=== PATIENT | female | born 1940 | race Two or more races ===

== ENCOUNTER 2017-01-13 08:17 | Day surgery (SDC) | payer OTHER ==
[~2017-01-13] VITALS: Ht 137.2 cm; Wt 70.9 kg
[~2017-01-13 08:17] MED LIST: ASPI81 PO; ATOR10TA84 PO; DICLOFENAC SODIUM 0.1% 2.5 ML OPHTHALMIC SOLUTION OD ONE; METF500T4 PO; MOXIFLOXACIN HCL 0.5% 3 ML OPHTHALMIC SOLUTION OD ONE; RINGERS SOLUTION,LACTATED 500 ML IV ONE; TELM1TAB26 PO
[2017-01-13] MEDS ORDERED: MOXIFLOXACIN HCL 0.5% 3 ML OPHTHALMIC SOLUTION ONE (08:45)
[2017-01-13] MEDS ORDERED: TROPICAMIDE 1% 2 ML OPHTHALMIC SOLUTION ONE (08:45)
[2017-01-13] MEDS ORDERED: DICLOFENAC SODIUM 0.1% 2.5 ML OPHTHALMIC SOLUTION ONE (08:45)
[2017-01-13] MEDS ORDERED: RINGERS SOLUTION,LACTATED 500 ML IV ONE (08:46)
[2017-01-13] MEDS ORDERED: PHENYLEPHRINE HCL 2.5% 2 ML OPHTHALMIC SOLUTION ONE (08:46)
[2017-01-13] MEDS ORDERED: METO25 PO (08:59)
[2017-01-13] MEDS ORDERED: ROSU20 PO (08:59)
[2017-01-13] MEDS ORDERED: METF850T2 PO (08:59)
[2017-01-13] MEDS ORDERED: FOLI1 PO (08:59)
[2017-01-13] MEDS ORDERED: LOSA50TA37 PO (08:59)
[2017-01-13] MEDS ORDERED: ASPI81TA42 PO (08:59)
[2017-01-13] MEDS: TROPICAMIDE 1% 2 ML OPHTHALMIC SOLUTION OD SCH ×2 (09:40→09:45)
[2017-01-13] MEDS: PHENYLEPHRINE HCL 2.5% 2 ML OPHTHALMIC SOLUTION OD SCH ×2 (09:40→09:45)
[2017-01-13 09:43] LABS: GLUCOSE,POINT OF CARE 138 MG/DL (70-110)
[2017-01-13] MEDS ORDERED: FentaNYL CITRATE-PF 100 MCG/2 ML VIAL IVP ONE (12:00)
[2017-01-13] MEDS ORDERED: MIDAZOLAM HCL 2 MG/2 ML VIAL IVP ONE (12:00)
[2017-01-13] MEDS ORDERED: VANCOMYCIN HCL 500 MG/VIAL IV ONE (17:26)
[2017-01-13] MEDS ORDERED: POVIDONE-IODINE 10% 15 ML SOLUTION UD TP ONE (17:26)
[2017-01-13] MEDS ORDERED: LIDOCAINE HCL/PF 1% 2 ML VIAL IM ONE (17:26)
[2017-01-13] MEDS ORDERED: DEXAMETHASONE SOD PHOS 4 MG/ML VIAL IVP ONE (17:26)
[2017-01-13] MEDS ORDERED: HYALURONATE SODIUM 12 MG/ML 0.8 ML SYRINGE IO ONE (17:26)
[2017-01-13] MEDS ORDERED: HYALURONATE SOD/CHONDROITIN SOD 0.5 ML VIAL IO ONE (17:26)
[2017-01-13] MEDS ORDERED: TETRACAINE HCL VISCOUS 0.5% 5 ML OPHTHALMIC SOLUTION OD ONE (17:26)
== END 2017-01-13 12:40 | disposition home or self-care (01) ==
LOC: SURGERY 08:17
PROVIDERS: ATTEND Specialist
DX: E11.36 Type 2 diabetes mellitus with diabetic cataract (principal); H25.011 Cortical age-related cataract, right eye; I10 Essential (primary) hypertension; E78.00 Pure hypercholesterolemia, unspecified; D64.9 Anemia, unspecified; D57.3 Sickle-cell trait; I49.9 Cardiac arrhythmia, unspecified; Z79.01 Long term (current) use of anticoagulants; Z95.1 Presence of aortocoronary bypass graft
CPT/HCPCS: 66984; 82962; 93005; C1780; J1100; J2250; J3010; J3370; J3490 ×2; J7120

== ENCOUNTER 2017-01-27 11:28 | Day surgery (SDC) | payer OTHER ==
[~2017-01-27] VITALS: Ht 149.9 cm; Wt 70.9 kg
[~2017-01-27 11:28] MED LIST changes: -ASPI81 PO; +ASPI81TA42 PO; -ATOR10TA84 PO; -DICLOFENAC SODIUM 0.1% 2.5 ML OPHTHALMIC SOLUTION OD ONE; +DICLOFENAC SODIUM 0.1% 2.5 ML OPHTHALMIC SOLUTION ONE; +FOLI1 PO; +LOSA50TA37 PO; -METF500T4 PO; +METF850T2 PO; +METO25 PO; -MOXIFLOXACIN HCL 0.5% 3 ML OPHTHALMIC SOLUTION OD ONE; +MOXIFLOXACIN HCL 0.5% 3 ML OPHTHALMIC SOLUTION ONE; +PHENYLEPHRINE HCL 2.5% 2 ML OPHTHALMIC SOLUTION ONE; +ROSU20 PO; -TELM1TAB26 PO; +TROPICAMIDE 1% 2 ML OPHTHALMIC SOLUTION ONE
[2017-01-27] MEDS ORDERED: MIDAZOLAM HCL 2 MG/2 ML VIAL IVP ONE (11:29)
[2017-01-27] MEDS ORDERED: DICLOFENAC SODIUM 0.1% 2.5 ML OPHTHALMIC SOLUTION OS ONE (11:30)
[2017-01-27] MEDS ORDERED: MOXIFLOXACIN HCL 0.5% 3 ML OPHTHALMIC SOLUTION OS ONE (11:30)
[2017-01-27] MEDS: TROPICAMIDE 1% 2 ML OPHTHALMIC SOLUTION OS SCH ×2 (12:25→12:30)
[2017-01-27] MEDS ORDERED: RINGERS SOLUTION,LACTATED 500 ML IV ONE (12:25)
[2017-01-27] MEDS: PHENYLEPHRINE HCL 2.5% 2 ML OPHTHALMIC SOLUTION OS SCH ×2 (12:25→12:30)
[2017-01-27 12:33] LABS: GLUCOSE,POINT OF CARE 123 MG/DL (70-110)
== END 2017-01-27 16:00 | disposition home or self-care (01) ==
LOC: SURGERY 11:28
PROVIDERS: ATTEND Specialist
DX: E11.36 Type 2 diabetes mellitus with diabetic cataract (principal); H25.012 Cortical age-related cataract, left eye; I10 Essential (primary) hypertension; E78.00 Pure hypercholesterolemia, unspecified; M19.90 Unspecified osteoarthritis, unspecified site; D57.3 Sickle-cell trait; D64.9 Anemia, unspecified; Z79.82 Long term (current) use of aspirin; Z98.41 Cataract extraction status, right eye; Z95.1 Presence of aortocoronary bypass graft; Z95.5 Presence of coronary angioplasty implant and graft
CPT/HCPCS: 66984; 82962; C1780; J2250; J7120